=== PATIENT | male | born 1945 | race Caucasian/White ===

== ENCOUNTER 2022-09-13 14:31 | Emergency (ER) | payer BC, MEDICARE ==
[2022-09-13] MEDS ORDERED: ASPIRIN 81 MG CHEW TABLET PO ONE (14:50)
[2022-09-13] MEDS: NITROGLYCERIN 0.4 MG SUBL TABLET SL PRN ×3 (15:04→15:31)
[2022-09-13] MEDS ORDERED: MYRB25TA (15:18)
[2022-09-13] MEDS ORDERED: LISI10TA22 (15:18)
[2022-09-13] MEDS ORDERED: OMEP-173 (15:18)
[2022-09-13] MEDS ORDERED: ATOR1TAB21 (15:18)
[2022-09-13 15:27] LABS: BASO # 0.1 10^3/uL (0.0-0.2); BASO % 0.9 % (0.0-1.0); EOS # 0.2 10^3/uL (0.0-0.5); EOS % 2.4 % (0.0-3.0); HEMOGLOBIN 15.2 g/dl (13.5-17.5); LYMPH % 23.7 % (24.0-44.0); MEAN CORPUSCULAR HEMOGLOBIN 33.8 pg (27.0-33.0); MEAN CORPUSCULAR HGB CONC 34.5 g/dl (32.0-36.5); MEAN CORPUSCULAR VOLUME 97.8 fl (80.0-96.0); MONO # 0.8 10^3/uL (0.0-0.8); MONO % 8.8 % (2.0-8.0); NEUTROPHILS # 5.4 10^3/uL (1.5-8.5); PLATELET COUNT, AUTOMATED 245 10^3/uL (150-450); WHITE BLOOD COUNT 8.5 10^3/uL (4.0-10.0)
[2022-09-13 15:31] VITALS: BP 147/70
[2022-09-13 15:53] LABS: RSV AMPLIFICATION NEGATIVE (NEGATIVE)
[2022-09-13 16:01] LABS: CPK CREATINE PHOSPHOKINASE 102 U/L (39-308)
[2022-09-13 16:08] LABS: ALBUMIN 3.8 GM/DL (3.2-5.2); ALT/SGPT 28 U/L (12-78); BILIRUBIN,DIRECT 0.3 MG/DL (0.0-0.2); BILIRUBIN,TOTAL 0.9 MG/DL (0.2-1.0); BLOOD UREA NITROGEN 12 MG/DL (7-18); CALCIUM LEVEL 8.9 MG/DL (8.8-10.2); CARBON DIOXIDE LEVEL 28 MEQ/L (21-32); CHLORIDE LEVEL 109 MEQ/L (98-107); CREATININE FOR GFR 0.72 MG/DL (0.70-1.30); GLOMERULAR FILTRATION RATE > 60.0 (>42); GLUCOSE, FASTING 103 MG/DL (70-100); LIPASE 91 U/L (73-393); NT-PRO BNP 29 PG/ML (<450); POTASSIUM SERUM 3.9 MEQ/L (3.5-5.1); SODIUM LEVEL 142 MEQ/L (136-145); TOTAL PROTEIN 6.7 GM/DL (6.4-8.2)
[2022-09-13] MEDS ORDERED: ISOVUE-370 76% 100ML VIAL As Ordered ONE (16:11)
[2022-09-13] MEDS: MORPHINE 2 MG/ML 1ML VIAL IV PRN ×2 (16:13→16:59)
[2022-09-13] MEDS ORDERED: GI COCKTAIL 50ML BTL(HYOSCYAMINE/MAALOX/LIDOCAINE VISCOUS)(1:3:1) PO ONE (17:00)
[2022-09-13 17:03] LABS: CPK CREATINE PHOSPHOKINASE 98 U/L (39-308)
[2022-09-13] MEDS ORDERED: ASPI81TA26 PO (18:19)
[2022-09-13] MEDS ORDERED: NITR4TASL SL (18:21)
[2022-09-13 18:41] VITALS: BP 157/81
== END 2022-09-13 18:57 | disposition left against medical advice (07) ==
LOC: M ED 14:31
DX: R07.9 Chest pain, unspecified (principal); I10 Essential (primary) hypertension; E78.5 Hyperlipidemia, unspecified; Z88.7 Allergy status to serum and vaccine; Z79.82 Long term (current) use of aspirin; Z79.811 Long term (current) use of aromatase inhibitors; Z79.899 Other long term (current) drug therapy; Z53.21 Procedure and treatment not carried out due to patient leaving prior to being seen by health care provider
CPT/HCPCS: 71045; 71275; 80048; 80076; 82550; 83690; 83880; 84443; 85025; 87631; 93005; 93041; 94760; 96374; 96376; 99285; J2270; Q9967